=== PATIENT | male | born 2000 | race Asian ===

== ENCOUNTER 2023-03-06 13:01 | Emergency (ER) | payer OTHER, SELFPAY ==
--- NOTE | ~2023-03-06 | CT_ITS ---
Non-contrast CT scan of the Abdomen and Pelvis Clinical indication: Quadrant pain Technique: 2.5 mm axial scans were obtained through the abdomen and pelvis without intravenous or or al contrast. Dose reduction technique was used on this scan by utilizing automated exposure control a nd iterative reconstruction technique. The dose-length product (DLP) was 428.77 mGy-cm. Findings: Images through the lung bases reveal no abnormalities. There is a 4 mm stone either at the right UVJ or just within the urinary bladder. There is mild right hydroureteronephrosis. No left ureteral stone or left hydronephrosis. There are additional bilateral nonobstructing renal stones present. The liver, spleen, pancreas, gallbladder, and adrenals appear n ormal. There is no aortic aneurysm. There is no evidence of bowel obstruction. Images through the pelvis were performed. There is no evidence of ascites or lymphadenopathy. No othe r bladder abnormality seen. No pelvic mass seen. Impression: 4 mm stone which is probably just within the urinary bladder, otherwise at the right UVJ. Prone imagi ng of the pelvis could be performed to distinct these possibilities, if clinically indicated. Mild right hydronephrosis. Additional bilateral nonobstructing renal stones. Reviewed, dictated and finalized at location M. [facility] Impression: 4 mm stone which is probably just within the urinary bladder, otherwise at the right UVJ. Prone imaging of the pelvis could be performed to distinct these pos sibilities, if clinically indicated. Mild right hydronephrosis. Additional bilateral nonobstructing renal stones.
[2023-03-06 13:05] VITALS: BP 136/72; PULSE 74; RESP 24; TEMP 36.3; O2SAT 98
[2023-03-06] MEDS: KETOROLAC 15 MG/ML VIAL (*BKC) IV PUSH (13:36)
--- NOTE | 2023-03-06 13:38 | ED.MALEGU ---
HPI - Male Genitourinary General Chief complaint: Urogenital-Male Stated complaint: RIGHT FLANK PAIN Time Seen by Provider: 03/06/23 13:14 Source: patient Mode of arrival: EMS Limitations: no limitations History of Present Illness HPI Narrative: 22-year-old male presenting with right flank pain starting 1 hour ago. He was at school and walking to class when this started. Has had appendectomy in the past. No nausea vomiting or diarrhea. No urinary changes. Pain seems to radiate down into his apartment. All other symptoms and complaints are negative as per ROS. Related Data Allergies Allergy/AdvReac Type Severity Reaction Status Date / Time No Known Allergies Allergy Verified 03/06/23 13:11 Review of Systems Review of Systems: All systems reviewed & are unremarkable except as noted in HPI and below (HPI) Exam Narrative: Constitutional: Generally well appearing, no acute distress Head: Atraumatic, no deformities. Eyes: Pupils equal, round, and reactive to light. Neck: Supple, no tracheal deviation, no JVD. ENMT: Mucous membranes moist Cardiovascular: S1, S2 auscultated. No murmurs, rubs, or gallops. No S3/S4. Normal Distal pulses. No peripheral edema. Respiratory: Lung sounds equal. No wheezes, rales, or rhonchi. Gastrointestinal: Abdomen was soft and non-tender. Non-distended. No rebound or guarding. Tenderness in the right CVA mildly Genitourinary: Deferred Musculoskeletal: Normal muscle tone and bulk. No obvious deformities or tenderness over extremities. Skin: No rashes. Neurological: Strength 5/5 in extremities. Cranial nerves I-XII grossly intact. Distal sensation intact. Mental Status: Awake, alert and oriented x3. Follows commands Course Vital Signs Vital signs: Vital Signs Temperature 36.3 C L 03/06/23 13:05 Pulse Rate 74 03/06/23 13:05 Respiratory Rate 24 H 03/06/23 13:05 Blood Pressure 136/72 03/06/23 13:05 Pulse Oximetry 98 03/06/23 13:05 Oxygen Delivery Room Air 03/06/23 13:05 Temperature 36.3 C L 03/06/23 13:05 Pulse Rate 74 03/06/23 13:05 Respiratory Rate 24 H 03/06/23 13:05 Blood Pressure 136/72 03/06/23 13:05 Pulse Oximetry 98 03/06/23 13:05 Oxygen Delivery Room Air 03/06/23 13:05 MDM - Male Genitourinary MDM Narrative Medical decision making narrative: 22-year-old male presenting with right flank pain starting 1 hour prior to arrival. Has had appendectomy in the past but otherwise no medical history. Exam is generally well-appearing. He did get 8 mg of morphine from EMS. Feeling a bit better at this point. Still has some tenderness in the right CVA. Obtaining CTA abdomen and pelvis to evaluate for likely kidney stone versus pyelonephritis primarily. Also obtain basic lab work. Given Toradol and fluids. Labs and imaging reviewed. CT shows evidence of 4 mm stone at the UVJ where in the bladder. Mild hydronephrosis. Otherwise nonfocal abnormalities on labs. Patient reassessed metallic better. Stable for discharge home. Given prescription for Toradol. Pt feeling improved and would like to go home at this point. Return precautions were given to the patient include any new or worsening symptoms or development of and not limited to any chest pain, shortness of breath, lightheadedness, abdominal pain, fevers, chills. Patient understands and agrees. They are to follow-up with her PCP. All questions were answered. I reviewed the patient's vital signs, history, allergies, and labs and imaging workup.. Medical Records Attestation: I reviewed the patient's medical records. Lab Data Attestation: I reviewed the patient's lab results. 03/06/23 13:37 03/06/23 13:37 Labs: Lab Results 03/06/23 03/06/23 Range/Units 13:37 13:45 WBC 10.6 H (4.5-10.0) K/mm3 RBC 4.83 (4.6-6.20) M/mm3 Hgb 14.8 (14.0-18.0) g/dL Hct 44.2 (42.0-52.0) % MCV 91.5 (80-100) fl MCH 30.6 (26-34) pg MCHC 33.5 (32-36)
[2023-03-06 13:59] LABS: Basophils Absolute Auto 0.1 K/mm3 (0.0-0.1); Basophils Percent Auto 0.5 % (0.2-1.2); Eosinophils Absolute Auto 0.2 K/mm3 (0-0.3); Eosinophils Percent Auto 1.5 % (0-4.4); Hematocrit 44.2 % (42.0-52.0); Hemoglobin 14.8 g/dL (14.0-18.0); Immature Granulocyte Absolute 0.06 K/mm3 (0.00-0.031); Immature Granulocyte Percent A 0.6 % (0-0.5); Lymphocytes Absolute Auto 2.94 K/mm3 (0.9-3.2); Lymphocytes Percent Auto 27.7 % (18.3-44.2); Mean Corpuscular HGB Conc 33.5 g/dl (32-36); Mean Corpuscular Hemoglobin 30.6 pg (26-34); Mean Corpuscular Volume 91.5 fl (80-100); Mean Platelet Volume 10.9 fl (7.4-10.4); Monocytes Absolute Auto 0.5 K/mm3 (0.1-0.6); Monocytes Percent Auto 4.2 % (2.6-8.5); Neutrophils Absolute Auto 6.9 K/mm3 (1.3-6.7); Neutrophils Percent Auto 65.5 % (45.5-73.1); Platelet Count Result 313 k/mm3 (150-375); Red Blood Count 4.83 M/mm3 (4.6-6.20); Red Cell Distribution Width 11.9 % (11.5-14.5); White Blood Count 10.6 K/mm3 (4.5-10.0)
[2023-03-06 14:05] LABS: Appearance Urine Clear (Clear); Bilirubin Urine Negative (Negative); Blood Urine Negative (Negative); Color Urine Yellow (Yellow); Glucose Urine UA Negative (Negative); Ketones Urine Negative (Negative); Leukocyte Esterase Ur Negative LEU/UL (Negative); Nitrate Urine Negative (Negative); Protein Urine Negative (Negative); Specific Grav Ur 1.018 (1.001-1.035); Urobilinogen Urine 0.2 mg/dL (<2.0); pH Urine 5.5 (5.0-9.0)
[2023-03-06] MEDS: SODIUM CHLORIDE 0.9% IV 1,000 ML 999 ML (14:06)
[2023-03-06 14:11] LABS: Add Urine Microscopic? NO
[2023-03-06 14:17] LABS: Alanine Aminotransferase 73 U/L (6-50); Albumin Level 4.3 g/dL (3.5-5.1); Alkaline Phosphatase 103 U/L (38-126); Anion Gap 11 mmol/L (8-16); Aspartate Amino Transferase 46 U/L (17-59); Blood Urea Nitrogen 16 mg/dL (9-20); Calcium 9.1 mg/dL (8.4-10.2); Carbon Dioxide 23 mmol/L (22-30); Chloride 105 mmol/L (98-107); Estimated CRCL calculation 119 ml/min; Estimated Glomerular Filt Rate > 60; Glucose 98 mg/dL (65-110); Potassium 3.5 mmol/L (3.4-5.0); Sodium 139 mmol/L (137-145)
--- NOTE | 2023-03-06 14:45 | PC.NURSE ---
500MLS Given per EMS providers orders. Downtime was active, when 1L fluids were overroad from pyxis.
[2023-03-06 14:47] VITALS: BP 142/79; PULSE 92; RESP 20; O2SAT 100
== END 2023-03-06 15:09 | disposition home or self-care (01) ==
LOC: ANHED 14:35
PROVIDERS: Emergency Provider Emergency Medicine
DX: N13.2 Hydronephrosis with renal and ureteral calculous obstruction (principal)
CPT/HCPCS: 36415; 74176; 80053; 81003; 85025; 96361; 96374; 99284; J1885; J7030